=== PATIENT | male | born 1945 | race Caucasian/White ===

== ENCOUNTER 2018-02-27 10:20 | Emergency (ER) | payer OTHER ==
[~2018-02-27] VITALS: Ht 182.9 cm; Wt 104.3 kg
[2018-02-27] MEDS ORDERED: SODIUM CHLORIDE 0.9% 1,000 ML IV ONE (10:41)
[2018-02-27] MEDS ORDERED: LORazepam 2MG/ML-1ML VIAL IV ONE (10:45)
[2018-02-27 10:57] LABS: Basophils # (auto) 0.1 uL; Basophils % (auto) 1.3 % (0.0-2.0); Eosinophils # (auto) 0.7 uL; Eosinophils % (auto) 9.8 % (0.0-7.0); Hematocrit 45.9 % (41.0-53.0); Hemoglobin 15.1 g/dL (13.5-17.5); Lymphocytes # (auto) 2.1 uL; Lymphocytes % (auto) 28.5 % (10.0-50.0); Mean Corpuscular Hemoglobin 29.7 pg (28.0-32.0); Mean Corpuscular Hgb Conc. 32.9 g/dL (32.0-36.0); Mean Corpuscular Volume 90.3 fL (80.0-100.0); Monocytes # (auto) 0.5 uL; Neutrophils # (auto) 3.9 uL; Neutrophils % (auto) 53.4 % (37.0-80.0); Nucleated Red Blood Cells % 0.1 %; Platelet Count (auto) 305 10^3/uL (140-450); Red Blood Cells 5.08 10^6/uL (4.5-5.90); Red Cell Distribution Width 14.6 % (11.8-14.3); White Blood Cell 7.3 10^3/uL (4.4-10.8)
[2018-02-27 11:19] LABS: Albumin 3.2 g/dL (3.4-5.0); Anion Gap 9 (5-15); Blood Urea Nitrogen 13 mg/dL (7-18); Carbon Dioxide 25 mmol/L (21-32); Chloride 106 mmol/L (98-107); Glucose 150 mg/dL (74-106); Magnesium 2.1 mg/dL (1.6-2.6); Potassium 3.6 mmol/L (3.5-5.1); Sodium 140 mmol/L (136-145)
[2018-02-27 11:24] LABS: Alanine Aminotransferase 25 U/L (16-61); Alkaline Phosphatase 60 U/L (45-117); Aspartate Aminotransferase 18 U/L (15-37); BUN/Creatinine Ratio 11.8; Bilirubin, Total 1.5 mg/dL (0.2-1.0); Calcium 8.3 mg/dL (8.5-10.1); GFR African American 85 mL/min; GFR Non-African American 70 mL/min; Total Protein 7.8 g/dL (6.4-8.2)
[2018-02-27 12:39] VITALS: BP 135/81
== END 2018-02-27 12:38 | disposition home or self-care (01) ==
LOC: EDBD 10:20 → ER 10:29
DX: R42 Dizziness and giddiness (principal); E11.9 Type 2 diabetes mellitus without complications; E78.5 Hyperlipidemia, unspecified
CPT/HCPCS: 36415; 70450; 71045; 74176; 80053; 83735; 84484; 85025; 93005; 96361; 96374; 99285; J2060; J7030

== ENCOUNTER 2024-04-11 09:32 | Emergency (ER) | payer OTHER ==
[~2024-04-11] VITALS: Ht 177.8 cm; Wt 90.9 kg
[2024-04-11] MEDS: SODIUM CHLORIDE 0.9% 1,000 ML IV ONE (10:55)
[2024-04-11] MEDS: SODIUM CHLORIDE 0.9% 500 ML IV ONE (10:56)
--- NOTE | 2024-04-11 11:20 | ED.PDOC ---
HPI (NEURO) HPI Comments 79 year old male TRINH presents to the ED with chief complaint of generalized weakness. Patient reports that he had went to the bathroom earlier this morning, but he had slipped and fell. Patient relays that he has felt generalized weakness since this morning and was unable to get up from the floor of the bathroom. Patient states he had his neighbors attempt to help him, but he had then called 911 when they were unable to. Patient denies any chest pain, dizziness, SOB, N/V, head injury, or LOC. Chief Complaint: General Weakness Time Seen by MD: 11:15 Reviewed Notes: Nurses Notes, Wastewater Supervisor Notes, Medications, Allergies Information Source: Patient, Emergency Med Personnel Mode of Arrival: EMS Severity: Moderate Dizziness/Weakness Severity: Unable to do activities Headache Severity: None Timing: Hours Duration: Since onset Prehospital treatment: None Weakness Location: Generalized Onset: At rest Circumstances: Spontaneous Symptoms: Weakness Associated Signs and Symptoms: Weakness Past Medical History PAST MEDICAL HISTORY: DM, High Lipids Past Medical History (Other): Enlarged prostate Surgical History: Cholecystectomy Family History Family History: Unknown Social History Smoker: Non-Smoker Alcohol: Denies ETOH Use Drugs: Denies Drug Use Lives In: Home Constitutional: reports: weakness; denies: chills, diaphoresis, fatigue, fever, malaise, sweats, others EENTM: denies: blurred vision, double vision, ear bleeding, ear discharge, ear drainage, ear pain, ear ringing, eye pain, eye redness, hearing loss, mouth pain, mouth swelling, nasal discharge, nose bleeding, nose congestion, nose pain, photophobia, tearing, throat pain, throat swelling, voice changes, others Respiratory: denies: cough, hemoptysis, orthopnea, SOB at rest, shortness of breath, SOB with excertion, stridor, wheezing, others Cardiovascular: denies: chest pain, dizzy spells, diaphoresis, Dyspnea on exertion, edema, irregular heart beat, left arm pain, lightheadedness, palpitations, PND, syncope, others Gastrointestinal: denies: abdomen distended, abdominal pain, blood streaked bowels, constipated, diarrhea, dysphagia, difficulty swallowing, hematemesis, melena, nausea, poor appetite, poor fluid intake, rectal bleeding, rectal pain, vomiting, others Genitourinary: denies: burning, dysuria, flank pain, frequency, hematuria, incontinence, penile discharge, penile sore, pain, testicle pain, testicle swelling, urgency, others Neurological: denies: dizziness, fainting, headache, left sided numbness, left sided weakness, numbness, paresthesia, pre-existing deficit, right sided numbness, right sided weakness, seizure, speech problems, tingling, tremors, weakness, others Musculoskeletal: denies: back pain, gout, joint pain, joint swelling, muscle pain, muscle stiffness, neck pain, others Integumetry: denies: bruises, change in color, change in hair/nails, dryness, laceration, lesions, lumps, rash, wounds, others Allergic/Immunocompromised: denies: Difficulty Healing, Frequent Infections, Hives, Itching, others Hematologic/Lymphatic: denies: anemia, blood clots, easy bleeding, easy bruising, swollen glands, others Endocrine: denies: excessive hunger, excessive sweating, excessive thirst, excessive urination, flushing, intolerance to cold, intolerance to heat, unexplained weight gain, unexplained weight loss, others Psychiatric: denies: anxiety, bipolar disorder, depression, hopeless, panic disorder, schizophrenia, sleepless, suicidal, others All Other Systems: Reviewed and Negative Physical Exam General Appearance: No Apparent Distress, Obese HEENT: Normal ENT Inspection, PERRL/EOMI, Other (VERY HARD OF HEARING) Neck: Full Range of Motion, Non-Tender, Normal, Normal Inspection Respiratory: Chest Non-Tender, Lungs Clear, No Accessory Muscle Use, No Respiratory Distress, Normal Breath Sounds Cardiovascular: No Edema, No JVD, No Murmur, No Gallop, Normal Peripheral Pulses, Regular Rate/Rhythm Breast Exam: Deferred Gastrointestinal: No Organomegaly, Non Tender, No Pulsatile Mass, Normal Bowel Sounds, Soft, Other (OBESITY) Genitalia: Deferred Pelvic: Deferred Rectal: Deferred Extremities: Decreased range of motion, No calf tenderness, Normal capillary refill, Normal inspection, Normal range of motion, No pedal edema, Tender, Other (But he is complaining of left hip pain mobility is adequate but painful) Musculoskeletal : Location: Bilateral Extremity Location: Back Apperance: Limited ROM, Tenderness: Mild, Tenderness: Moderate, Other (CHRONIC BACK PAIN PATIENT HAD A FALL THIS MORNING COULD NOT GET UP HIS LEGS WERE TOO WEAK) Neurologic: Alert, dog licenser II-XII nml as Tested, No Motor Deficits, Normal Affect, Normal Mood, No Sensory Deficits Cerebellar Function: Normal Reflexes: NOT DONE Skin: Dry, Normal Color, Warm Peripheral Pulses: 1+ carotid (R), 1+ carotid (L) Lymphatic: No Adenopathy EKG EKG : Pulse Rate (adult): 82 Nunez: LAD Cardiac Rhythm: PAC's Block: RBBB Was a procedure done? Was a procedure done?: No Differential Diagnosis (SZ) Seizure: Hypocalcemia, Hypoglycemia, Hyponatremia CVA: Electrolyte Imbalance General Weakness: Anemia, Dehydration, Electrolyte imbalance, Hypoglycemia, Hypotension, Hypovolemia, Renal failure Headache: N/A X-Ray, Labs, Meds, VS Vital Signs Date Time Temp Pulse Resp B/P (MAP) Pulse Ox O2 Delivery O2 Flow Rate FiO2 04/11/24 17:00 97.9 70 14 128/67 (87) 90 97.9 04/11/24 14:00 99.4 83 14 124/61 (82) 95 99.4 04/11/24 12:42 82 04/11/24 11:06 Room Air* 0 21 04/11/24 11:05 98.9 80 16 107/51 (69) 98 98.9 04/11/24 09:44 99.7 86 20 109/73 (85) 92 04/11/24 09:39 82 Lab Test 04/11/24 12:09 04/11/24 11:10 Range/Units Urine Color Yellow Yellow Urine Clarity Clear Clear Urine pH 5.5 5.0-9.0 Urine Specific [place] 1.017 1.001-1.035 Urine Protein Negative Negative Urine Ketones Negative Negative Urine Blood Negative Negative /uL Urine Nitrite Negative Negative Urine Bilirubin Negative Negative Urine Urobilinogen Normal Negative mg/dL Urine Leukocyte Esterase Negative Negative /uL Urine RBC 1 0 - 3 /hpf Urine WBC 1 0 - 3 /hpf Urine Squamous Epithelial Cells Few <5 /hpf Urine Bacteria None seen None Seen /hpf Urine Mucus Few None Seen Urine Glucose Normal Normal mg/dL White Blood Count 9.9 4.4-10.8 10^3/uL Red Blood Count 5.08 4.5-5.90 10^6/uL Hemoglobin 15.7 13.5-17.5 g/dL Hematocrit 46.6 41.0-53.0 % Mean Corpuscular Volume 91.7 80.0-100.0 fL Mean Corpuscular Hemoglobin 30.9 28.0-32.0 pg Mean Corpuscular Hemoglobin Concent 33.7 32.0-36.0 g/dL Red Cell Distribution Width 14.9 H 11.8-14.3 % Platelet Count 316 140-450 10^3/uL Mean Platelet Volume 8.2 6.9-10.8 fL Neutrophils (%) (Auto) 76.6 37.0-80.0 % Lymphocytes (%) (Auto) 8.9 L 10.0-50.0 % Monocytes (%) (Auto) 11.2 0.0-12.0 % Eosinophils (%) (Auto) 1.8 0.0-7.0 % Basophils (%) (Auto) 1.5 0.0-2.0 % Neutrophils # (Auto) 7.6 1.6-8.6 10 ^3/uL Lymphocytes # (Auto) 0.9 0.4-5.4 10 ^3/uL Monocytes # (Auto) 1.1 0-1.3 10 ^3/uL Eosinophils # (Auto) 0.2 0-0.8 10 ^3/uL Basophils # (Auto) 0.1 0-0.2 10 ^3/uL Nucleated Red Blood Cells 0.1 % Sodium Level 139 136-145 mmol/L Potassium Level 4.2 3.5-5.1 mmol/L Chloride Level 103 98-107 mmol/L Carbon Dioxide Level 28 20-31 mmol/L Anion Gap 8 5-15 Blood Urea Nitrogen 9 9-23 mg/dL Creatinine 1.14 0.700-1.30 mg/dL Glomerular Filtration Rate Calc 66 >90 mL/min BUN/Creatinine Ratio 7.9 L 10.0-20.0 Serum Glucose 130 H 74-106 mg/dL Calcium Level 9.5 8.7-10.4 mg/dL Magnesium Level 2.0 1.6-2.6 mg/dL Total Bilirubin 1.9 H 0.2-1.0 mg/dL Aspartate Amino Transferase (AST) 28 13-40 U/L Alanine Aminotransferase (ALT) 15 7-40 U/L Alkaline Phosphatase 60 46-116 U/L Total Protein 7.5 5.7-8.2 g/dL Albumin 4.0 3.2-4.8 g/dL Current Medications Medications (Trade) Dose Ordered Sig/Zhen Route Start Time Stop Time Status Last Admin Sodium Chloride 500 ml @ 500 mls/hr Q1H ONCE IV 04/11/24 10:45 04/11/24 11:44 DC 04/11/24 10:56 X-Ray, Labs, Meds, VS Comment COURSE IN THE EMERGENCY DEPARTMENT EVENTFUL PATIENT CAME IN COMPLAINING OF GENERALIZED WEAKNESS AND ALSO A FALL WITHOUT THE ABILITY TO GET UP NEEDED HELP SO HE CALLED THE [facility] CHEST X-RAY SHOWS PULMONARY VASCULAR CONGESTION ATELECTASIS AND ATHEROSCLEROSIS OF THE AORTA EKG SHOWS NORMAL SINUS RHYTHM AT 82 WITH LEFT AXIS DEVIATION RIGHT BUNDLE-BRANCH BLOCK AND PACS IN PAIRS CT of the left hip pending MAGNESIUM TWO CMP ALL NORMAL CBC normal Urine negative PATIENT WILL BE HYDRATED AND OBSERVED Dr. Mackey to follow up Time of 1ST Reevaluation: 12:15 Reevaluation 1ST: Unchanged Time of 2ND Reevaluation: 15:24 Reevaluation 2ND: Improved Patient Education/Counseling: Diagnosis, Treatment, Prognosis, Need For Follow Up Family Education/Counseling: Diagnosis, Treatment, Prognosis, Need For Follow Up, No Family Present Assigned to Dr. dr mackey Change of Shift?: Yes Departure 1 Departure Time of Disposition: 18:21 Impression: Primary Impression: Fall Qualified Codes: W19.XXXA - Unspecified fall, initial encounter Additional Impressions: Generalized weakness Pain in left hip Atherosclerotic vascular disease Chronic back pain Qualified Codes: M54.50 - Low back pain, unspecified; G89.29 - Other chronic pain Disposition: 30 STILL A PATIENT Condition: Fair Critical Care Note Critical Care Time?: No Stability Stability form required: Yes Heart Score Heart Score: Heart Score Response (Comments) Value History Slightly Suspicious 0 EKG Repolarization Disturb 1 Age >65 2 Risk Factors 1 or 2 risk factors 1 Troponin N/A 0 Total 4 I personally scribed for AYDEN MOTT MD ([email or web address]) on 04/11/24 at 11:20. Electronically submitted by Ambrocio Lyles ([email or web address]). AYDEN MOTT MD Apr 11, 2024 11:20
[2024-04-11 11:30] LABS: Basophils # (auto) 0.1 10 ^3/uL (0-0.2); Basophils % (auto) 1.5 % (0.0-2.0); Eosinophils # (auto) 0.2 10 ^3/uL (0-0.8); Eosinophils % (auto) 1.8 % (0.0-7.0); Hematocrit 46.6 % (41.0-53.0); Hemoglobin 15.7 g/dL (13.5-17.5); Lymphocytes # (auto) 0.9 10 ^3/uL (0.4-5.4); Lymphocytes % (auto) 8.9 % (10.0-50.0); Mean Corpuscular Hemoglobin 30.9 pg (28.0-32.0); Mean Corpuscular Hgb Conc. 33.7 g/dL (32.0-36.0); Mean Corpuscular Volume 91.7 fL (80.0-100.0); Monocytes # (auto) 1.1 10 ^3/uL (0-1.3); Monocytes % (auto) 11.2 % (0.0-12.0); Neutrophils # (auto) 7.6 10 ^3/uL (1.6-8.6); Neutrophils % (auto) 76.6 % (37.0-80.0); Nucleated Red Blood Cells % 0.1 %; Platelet Count (auto) 316 10^3/uL (140-450); Red Blood Cells 5.08 10^6/uL (4.5-5.90); Red Cell Distribution Width 14.9 % (11.8-14.3); White Blood Cell 9.9 10^3/uL (4.4-10.8)
--- NOTE | 2024-04-11 11:37 | DVH ---
CLINICAL INFORMATION: 79 years old, Male; Generalized weakness. TECHNIQUE: Single AP portable chest radiograph was obtained. COMPARISON: None FINDINGS: Lungs: Atelectasis in the lung bases. No focal consolidation visualized. Cardiac: Heart size is within normal limits. Pulmonary vasculature: Mild prominence of the pulmonary vasculature. Mediastinum/rachid: Dense atherosclerotic calcification of the aortic arch. Tortuous course of the thor acic aorta. Bones: No acute osseous abnormality identified. Other: No other significant findings. IMPRESSION: 1. Bibasilar atelectasis with no focal consolidation visualized. 2. Mildly prominent pulmonary vasculature, may be seen with a mild degree of pulmonary vascular conge stion in the appropriate clinical setting. Correlate with clinical findings. 3. Additional findings as described above.
[2024-04-11 11:45] LABS: Alanine Aminotransferase 15 U/L (7-40); Alkaline Phosphatase 60 U/L (46-116); Anion Gap 8 (5-15); Aspartate Aminotransferase 28 U/L (13-40); BUN/Creatinine Ratio 7.9 (10.0-20.0); Calcium 9.5 mg/dL (8.7-10.4); Carbon Dioxide 28 mmol/L (20-31); Chloride 103 mmol/L (98-107); Potassium 4.2 mmol/L (3.5-5.1); Sodium 139 mmol/L (136-145); Total Protein 7.5 g/dL (5.7-8.2)
[2024-04-11 11:47] LABS: Bilirubin, Total 1.9 mg/dL (0.2-1.0); Blood Urea Nitrogen 9 mg/dL (9-23); Glucose 130 mg/dL (74-106)
[2024-04-11 15:38] LABS: Urine Bacteria None Seen /hpf (None Seen)
[2024-04-11 15:51] LABS: Urine Blood Negative /uL (Negative); Urine Clarity Clear (Clear); Urine Color Yellow (Yellow); Urine Mucus FEW (None Seen); Urine Protein, UAD Negative (Negative); Urine Specific Gravity 1.017 (1.001-1.035); Urine Urobilinogen Normal (Negative); Urine WBC 1 /hpf (0 - 3); Urine pH 5.5 (5.0-9.0)
[2024-04-11 17:00] VITALS: BP 128/67; PULSE 70; RESP 14; TEMP 97.9; O2SAT 90
--- NOTE | 2024-04-11 18:26 | DVH ---
Procedure: CT CT L HIP WITH OUT CONTRAST 04/11/2024 05:56 PM Indication: Fall at home pain to left hip limited morbidity Comparison Study: None. Technique: Axial images were obtained and reformatted in coronal and sagittal planes. All CT scans at this medical facility are performed using dose modulation techniques as appropriate t o a performed exam including the following: Automated exposure control was utilized; adjustment of th e MA and/or KV according to patient size; and use of iterative reconstruction technique. CT Dose: CTDI volume is 34.72 mGy. Dose-length product is 1259.98 mGy*cm FINDINGS: Bones: No acute fracture or dislocation. There is preservation of the hip joint. Mild acetabular ost eophytosis noted. No joint effusion. Mild grade 1 anterolisthesis of L5 on S1 noted due to bilateral L5 pars defects. Degenerative disc disease and posterior facet arthropathy at L5-S1 noted. A subcent imeter sclerotic focus is noted in the left sacral ala that may represent a bone island in the absenc e of known malignancy. Soft tissues: No acute abnormality. Atherosclerotic calcification noted. Prostatic hyperplasia measur ing 6.2 cm in transverse. IMPRESSION: 1. No acute osseous abnormality of the left hip left pelvic bones. 2. Mild left hip joint osteoarthritis. 3. Grade 1 anterolisthesis of L5 on S1 due to bilateral L5 pars defects, degenerative disc disease an d posterior facet arthropathy. 4. Severe prostatic hyperplasia. 5. Peripheral arterial disease.
--- NOTE | 2024-04-11 19:09 | ECG ---
[facility] Test Date: 2024-04-11 Test Time: 09:39:05 Pat Name: CHIARA CARTER Department: ER Room: Gender: M [employer] 13 [employer]: IC : 1945 Requested By: AYDEN MOTT Order Number: [id number] Reading MD: Medhat Mckeon Measurements Intervals [place] Rate: 82 P: 82 MD: 150 QRS: -82 QRSD: 148 T: 41 QT: 379 QTc: 443 Interpretive Statements Sinus rhythm Supraventricular bigeminy RBBB and LAFB Electronically Signed On 04-12-2024 13:09:06 PST by Medhat Mckeon Please click the below link to view image of tracing.
--- NOTE | 2024-04-11 20:09 | ED.PDOC ---
Departure 1 Departure Time of Disposition: 20:08 (Patient's workup was benign. He is feeling better would like to go home. We will discharge patient home with outpatient follow up) Impression: Primary Impression: Fall Qualified Codes: W19.XXXA - Unspecified fall, initial encounter Additional Impressions: Pain in left hip Atherosclerotic vascular disease Generalized weakness Chronic back pain Qualified Codes: M54.50 - Low back pain, unspecified; G89.29 - Other chronic pain Disposition: 01 HOME / SELF CARE / HOMELESS Condition: Stable FRANCISCO BANKS MD Apr 11, 2024 20:09
== END 2024-04-11 21:27 | disposition home or self-care (01) ==
LOC: EDBD 09:32 → ER 09:32 → EDUNIT# 09:32 → ER 21:27
DX: R53.1 Weakness (principal); G89.29 Other chronic pain; M54.50 Low back pain, unspecified; I70.8 Atherosclerosis of other arteries; E11.9 Type 2 diabetes mellitus without complications; E78.5 Hyperlipidemia, unspecified; Z90.49 Acquired absence of other specified parts of digestive tract; Z98.890 Other specified postprocedural states; W01.0XXA Fall on same level from slipping, tripping and stumbling without subsequent striking against object, initial encounter; Y93.89 Activity, other specified; Y92.091 Bathroom in other non-institutional residence as the place of occurrence of the external cause; Y99.8 Other external cause status
CPT/HCPCS: 36415; 71045; 73700; 80053; 81001; 83735; 85025; 93005